=== PATIENT | female | born 1960 | race Caucasian/White ===

== ENCOUNTER 2016-11-03 12:04 | Emergency (ER) | payer MEDICAID ==
[~2016-11-03] VITALS: Ht 162.6 cm; Wt 75.0 kg
[2016-11-03] MEDS ORDERED: DIPH25CA83 PO (12:14)
[2016-11-03] MEDS ORDERED: ACETAMINOPHEN 325MG TABLET PO ONE (14:30)
[2016-11-03 14:50] LABS: BASOPHILS % 0.4 % (0.0-2.0); HEMATOCRIT. 41.9 % (36.0-48.0); LYMPHOCYTES % 25.9 % (20.0-50.0); MEAN CORPUSCULAR HEMOGLOBIN 30.4 pg (28.0-32.0); MEAN CORPUSCULAR HGB CONC 33.5 g/dL (31.0-37.0); MEAN CORPUSCULAR VOLUME 90.7 fL (81.0-99.0); MEAN PLATELET VOLUME 7.9 fl (7.4-10.4); MONOCYTES % 10.1 % (2.0-8.0); NEUTROPHILS % 61.6 % (40.0-76.0); PLATELET 286 x1000/uL (130-400); RED BLOOD CELL COUNT 4.62 mill/uL (4.2-5.4); RED CELL DISTRIBUTION WIDTH 13.8 % (11.6-14.6); WHITE BLOOD COUNT 7.2 x1000/uL (4.5-11.0)
[2016-11-03 14:56] LABS: CHLORIDE 110 mEq/L (98-107); INDEX HEMOLYSI 1 (1-3); INDEX ICTERIC 1 (1-4); INDEX LIPEMIC 1 (1-3)
[2016-11-03 15:00] LABS: INR 0.9; PROTHROMBIN TIME 9.8 sec
[2016-11-03 15:05] LABS: ALANINE AMINOTRANSFERASE 35 IU/L (13-61); ALBUMIN 3.7 g/dL (3.4-5.0); ANION GAP 14; CALCIUM 8.9 mg/dL (8.5-10.1); CARBON DIOXIDE 25 mEq/L (21-32); LIPASE 113 IU/L (73-393); UREA NITROGEN BLOOD 11 mg/dL (7-21); eGFR > 60 mL/min (>60)
[2016-11-03 15:17] LABS: CLARITY URINE CLEAR (CLEAR); COLOR URINE YELLOW (YELLOW); GLUCOSE URINE NEGATIVE (NEGATIVE); KETONES URINE NEGATIVE (NEGATIVE); LEUKOCYTE ESTERASE URINE TRACE (NEGATIVE); NITRITE URINE NEGATIVE (NEGATIVE); OCCULT BLOOD URINE NEGATIVE (NEGATIVE); PH URINE 5.5 (4.5-8.0); PROTEIN URINE NEGATIVE (NEGATIVE); SPECIFIC GRAVITY URINE 1.018 (1.005-1.030); UROBILINOGEN URINE 0.2 E.U./dL (0.2-1.0)
[2016-11-03 15:37] LABS: BACTERIA URINE 3+; RBC URINE 0-2 /hpf (0-2); SQUAMOUS EPITHELIAL CELL URINE 1+ /lpf (RARE/1+); WBC URINE 0-2 /hpf (0-2)
[2016-11-03 16:47] VITALS: BP 139/87
== END 2016-11-03 16:49 | disposition home or self-care (01) ==
LOC: ER 14:28
DX: M54.5 Low back pain (principal); F17.210 Nicotine dependence, cigarettes, uncomplicated; F12.10 Cannabis abuse, uncomplicated; Z79.899 Other long term (current) drug therapy; Z90.710 Acquired absence of both cervix and uterus; Z86.19 Personal history of other infectious and parasitic diseases
CPT/HCPCS: 36415; 71010; 80053; 81001; 81025; 83690; 85025; 85610; 99285

== ENCOUNTER 2017-02-20 19:25 | Emergency (ER) | payer MEDICAID ==
[~2017-02-20] VITALS: Ht 154.9 cm; Wt 74.0 kg
[~2017-02-20 19:25] MED LIST: DIPH25CA83 PO
[2017-02-20] MEDS ORDERED: KETOROLAC 30MG/ML VIAL IV STA (20:18)
[2017-02-20] MEDS ORDERED: SODIUM CHLORIDE 0.9% 1,000 ML IV ONE (20:18)
[2017-02-20] MEDS ORDERED: ONDANSETRON HCL 4MG/2ML VIAL IV STA ×2 (20:18→23:27)
[2017-02-20 20:37] LABS: HEMATOCRIT. 42.8 % (36.0-48.0); HEMOGLOBIN. 14.3 g/dL (12.0-16.0); MEAN CORPUSCULAR HEMOGLOBIN 29.8 pg (28.0-32.0); MEAN CORPUSCULAR VOLUME 88.8 fL (81.0-99.0); MEAN PLATELET VOLUME 8.1 fl (7.4-10.4); PLATELET 285 x1000/uL (130-400); RED BLOOD CELL COUNT 4.82 mill/uL (4.2-5.4); RED CELL DISTRIBUTION WIDTH 13.7 % (11.6-14.6)
[2017-02-20 20:41] LABS: PROTHROMBIN TIME 10.5 sec
[2017-02-20 20:46] LABS: CARBON DIOXIDE 22 mEq/L (21-32); CHLORIDE 109 mEq/L (98-107)
[2017-02-20 20:50] LABS: TROPONIN I < 0.02 ng/mL (0.00-0.04)
[2017-02-20 20:55] LABS: PLATELET ESTIMATE NORMAL
[2017-02-21 01:20] VITALS: BP 139/91
== END 2017-02-21 02:00 | disposition home or self-care (01) ==
LOC: ER 21:22
DX: R07.9 Chest pain, unspecified (principal); R10.9 Unspecified abdominal pain; K76.89 Other specified diseases of liver; F12.10 Cannabis abuse, uncomplicated; F17.220 Nicotine dependence, chewing tobacco, uncomplicated; K57.90 Diverticulosis of intestine, part unspecified, without perforation or abscess without bleeding; K44.9 Diaphragmatic hernia without obstruction or gangrene; Z86.19 Personal history of other infectious and parasitic diseases
CPT/HCPCS: 36415; 71010; 74176; 80053; 83880; 84484; 85025; 85610; 93005; 96361; 96374; 96375; 96376; 99285; J1885; J2405; J7030; Z7610